=== PATIENT | male | born 1940 | race Caucasian/White ===

== ENCOUNTER → 2018-05-29 | Day surgery (SDC) | payer MEDICARE, OTHER ==
[~2018-05-29] VITALS: Ht 180.3 cm; Wt 90.7 kg
[~2018-05-29] MED LIST: ACYCLOVIR800 MG PO; ADLT ASA LOW81 MG PO; FENOFIBRATE134 MG PO; FIBERCON625 MG PO; FISH OIL1000 MG PO; FLOMAX0.4 M1 PO; LUMIGAN0.01 % OD; METFORMIN500 MG PO; METOPROL TAR25 MG PO; MONOPRIL10 M1 PO; NEURONTIN300 MG PO; SIMVASTATIN20 MG PO; VITAMIN B-122000 MCG PO; VITAMIN C1000 MG PO; VITAMIN D32000 UNIT PO
[2018-05-29 08:06] VITALS: BP 112/68
== END ==
LOC: ENDO 06:04
PROVIDERS: ATTEND Surgery
PROC: 0DJD8ZZ Inspection of Lower Intestinal Tract, Via Natural or Artificial Opening Endoscopic (ICD-10-PCS; principal; 2018-05-29)
DX: Z12.11 Encounter for screening for malignant neoplasm of colon (principal); K57.30 Diverticulosis of large intestine without perforation or abscess without bleeding

== ENCOUNTER 2020-09-03 17:54 | Inpatient (IN) | payer MEDICARE, OTHER ==
[~2020-09-03] VITALS: Ht 180.3 cm; Wt 86.7 kg
[~2020-09-03 17:54] MED LIST changes: +L-THYROXINE SODIUM XX
--- NOTE | 2020-09-03 17:55 | NUR ---
PT TO ROOM # 16 VIA EMS STRETCHER. PER PT REPORTS BEING TESTED ON Sunday08/31/20 FOR COVID HE WAS PLANNING TO LEAVE TOWN THIS WEEK, CALLED ON SUNDAY WITH RESULTS AND WAS POSITIVE COVID. SINCE SUNDAY REPORTS GENERALIZED WEAKNESS, WITH VIDEO NEWS EDITOR COUGH, LOSS OF TASTE AND SMELL. PT IS AOX 3.
--- NOTE | 2020-09-03 18:10 | NUR ---
BLOOD OBTAINED FROM IV ACCESS BY EMS. PT TOLERATED WELL.
--- NOTE | 2020-09-03 18:28 | NUR ---
SWABS COLLECTED PER ORDER. PT TOLERATED WELL. URINAL GIVEN TO PT FOR UA SAMPLE. VERBALIZED UNDERSTANDIGN. OUTBOUND SALES ADVISOR IN PLACE. CALL LIGHT WITHIN REACH.
--- NOTE | 2020-09-03 18:28 | NUR ---
PATIENT TO ROOM VIA EMS AND PHYSICIAN NOTIFIED OF PATIENT STATUS
--- NOTE | 2020-09-03 18:30 | NUR ---
PT UNABLE TO RECALL HOME MEDICATIONS AT THIS TIME.
[2020-09-03 18:37] LABS: HEMATOCRIT 46.5 % (39.0-50.0); HEMOGLOBIN 15.2 g/dl (14.0-18.0); IMMATURE GRANULOCYTES 0.3 % (0.0-5.0); MEAN CELL VOLUME 94.5 fL CALC (80.0-100.0); MEAN CORPUSCULAR HGB 30.9 pG CALC (26.0-32.0); MEAN CORPUSCULAR HGB CONC 32.7 g/dL CAL (32.0-36.0); NEUT# 5.52 thou/uL (1.82-7.42); RED BLOOD COUNT 4.92 mill/uL (4.70-6.10); RED CELL DISTRI WIDTH 13.9 % (11.5-15.5)
[2020-09-03 18:51] LABS: D-DIMER 0.78 mg/L (0.19-0.60)
[2020-09-03 18:56] LABS: ALBUMIN 3.6 g/dL (3.2-5.0); ALKALINE PHOSPHATASE 54 u/l (38-126); ANION GAP 11 (6-22 (CALC)); BUN 20 mg/dL (8-23); BUN/CREATININE RATIO 18 (12-20 (CALC)); CARBON DIOXIDE 28 mmol/l (22-30); CHLORIDE 99 mmol/l (95-108); CREATININE 1.1 mg/dL (0.7-1.3); GFR > 60 ML/MIN (>=60 (CALC)); GFR FOR AFR.AMER. > 60 ML/MIN (>=60 (CALC)); LIPASE 36 u/l (23-300); SGOT/AST 17 u/l (19-48); SODIUM 135 mmol/l (137-146); TOTAL PROTEIN 6.6 g/dL (6.3-8.2)
--- NOTE | 2020-09-03 19:00 | NUR ---
REPORT GIVEN TO AMIE MC
[2020-09-03 19:08] LABS: BILIRUBIN, TOTAL 1.4 mg/dL (0.0-1.4); C-REACTIVE PROTEIN 17.3 mg/dL (0-0.9)
[2020-09-03 19:09] LABS: ACT PARTIAL THROMBO TIME 26.9 SECONDS (20.0-32.5); INTERNATIONAL NORMALIZED RATIO 1.1 RATIO (0.7-1.3); PROTHROMBIN TIME 11.1 SECONDS (9.0-12.5)
[2020-09-03 19:20] LABS: URINE BILIRUBIN - DIPSTICK NEGATIVE (NEGATIVE); URINE BLOOD DIPSTICK LARGE (NEGATIVE); URINE GLUCOSE - DIPSTICK NEGATIVE (NEGATIVE); URINE KETONE NEGATIVE (NEGATIVE); URINE LEUK ESTERASE NEGATIVE (NEGATIVE); URINE NITRITE - DIPSTICK NEGATIVE (Negative); URINE PH 5.5 (4.5-8.0); URINE PROTEIN - DIPSTICK TRACE mg/dL (NEG-TRACE); URINE SPECIFIC GRAVITY 1.025; URINE UROBILINOGEN - DIPSTICK 0.2 E.U./dL (0.2)
--- NOTE | 2020-09-03 19:20 | NUR ---
PLAN OF CARE UPDATED WITH PT. RESPS EVEN,UNLABBORED. MILD TACHYPNEA NOTED WHEN PT ATTEMPTS TO TALK.
[2020-09-03 19:21] LABS: URINE COLOR DK. YELLOW
--- NOTE | 2020-09-03 20:19 | NUR ---
PT'S RESPS EVEN,UNLBBORED. PT CONTINUES TO COMPLAIN OF BODYACHES AND FATIGUE
--- NOTE | 2020-09-03 21:29 | NUR ---
PT'S SON VU ([phone]) SPOKEN WITH ABOUT THE PATIENTS STATUS AND PLAN OF CARE. PT PERMISSION GIVEN PRIOR
--- NOTE | 2020-09-03 23:42 | NUR ---
PT MADE COMFORTABLE WITH BLANKETS AND REMOVAL OF SHOES. LIGHTS TURNED OUT AND PT ABLE TO REST. RESPS EVEN,UNLABBORED.
[2020-09-04] VITALS (11 sets, daily range): BP systolic 92–128; BP diastolic 52–77
--- NOTE | 2020-09-04 00:55 | NUR ---
PT SLEEPING. RESPS EVEN, UNLABBORED.
--- NOTE | 2020-09-04 01:24 | NUR ---
PT SLEEPING. RESPS EVEN, UNALBBORED.
--- NOTE | 2020-09-04 03:01 | NUR ---
PT ARIVED TO ROOM 291 IN WHEELCHAIR. REPORT WAS GIVEN BY ER NURSE. NO RESPIRATORY DISTRESS NOTED. NON PRODUCTIVE COUGH NOTED. WILL CONTINUE TO OBSERVE.
--- NOTE | 2020-09-04 03:05 | NUR ---
PT LEAVING VIA WHEELCHAIR FROM ER. RESPS EVEN,UNLABBORED.
--- NOTE | 2020-09-04 04:45 | NUR ---
dr. Sampson was called regarding tempt 102.0 and elevated hr at 103bpm. Md gave orders for Telemetry and tylenol for elevated tempt. pt states he is very nauseaous and vomited yellowish colord liquid. Mew order for Zofran. Normal Saline to start at 50ml/hr per Dr. Sampson. orders noted. will continue to observe
--- NOTE | 2020-09-04 06:03 | NUR ---
Md was called regarding pt hr sustaining in 130's. Awaiting response. pt in bed with eyes open and able to verbalize needs and denies pain or discomfort. rechecked temperature and decreased from 102 temporal to 100.0 temporal. resident has incontinence of urine noted. Oxygen level 96% on 2lnc of oxygen therapy. HOB elevated. Will continue to observe.
--- NOTE | 2020-09-04 07:30 | NUR ---
PATIENT IN BED AT THIS TIME SIDE RAILS UP CALL LIGHT WITHIN REACH. PATIENT TEMP RECHECKED AT THIS TIME AND IN 98.4 PATIENT DENIES ANY PAIN AND IS ON 02 AT 2 ITERS AND SPO2 IS 98%. AT THIS TIME. PATIENT REMAINS IN ISOLATION FOR COVID AT THIS TIME.
[2020-09-04] MEDS ORDERED: SIMVASTATIN20 MG PO (08:39)
[2020-09-04] MEDS ORDERED: GABAPENTIN300 M2 PO (08:39)
[2020-09-04] MEDS ORDERED: LOPRESSOR 550 MG/TAB PO (08:40)
[2020-09-04] MEDS ORDERED: LEVOTHYROXIN50 MCG PO (08:40)
[2020-09-04] MEDS ORDERED: TAMSULOSIN HCL0.4 MG PO (08:40)
--- NOTE | 2020-09-04 12:29 | NUR ---
PATIENT RESTING IN BED AT THIS TIME DENIES ANY NEEDS SIDERAILS UP X 2 O2 ON AT 2 LITERS. DENIES PAIN. TELE BEING MONITORED BY ED AT THIS TIME.
--- NOTE | 2020-09-04 16:15 | NUR ---
PATIENT INCOTINENT OF STOOL AT THIS TIME. PATIENT GIVEN PARTIAL BATH. PATIENT IN BED SIDERAIL UP CALL LIGHT WITHIN REACH. PATIENT STATES HE HAS NO PAIN BUT HAD A DRY NON PRODUCTIVE COUGH AT THIS TIME. PATIENT SIDERAILS ARE UP X 2 CALL LIGHT WITHIN REACH.
--- NOTE | 2020-09-04 18:45 | NUR ---
rec'd to icu 6 per bed from [facility]. report rec'd per soham. denies distress. o2 began @ 2 l/m per nc. quality assurance monitor body shows a fib hr 151. #22 lfa. ns infusing @ 50cchr. fall & air/contact precautions cont.
--- NOTE | 2020-09-04 18:45 | NUR ---
ORDERS OBTAINED AT THIS TIME TO TRANSFER PATIENT TO ICU PER FUEL EFFICIENT AUTOMOBILE DESIGNER FOR NEW ONSET OF A-FIB RVR AT THIS TIME. REPORT GIVEN TO BARB CARRIZALES IN ICU.
--- NOTE | 2020-09-04 18:45 | NUR ---
spoke to pt about covid results & prone position.
--- NOTE | 2020-09-04 19:30 | NUR ---
environmental monitoring specialist shows a fib hr 151. while pushing cardizem 10mg hr lowered to 76 bpm. will hold other 10mg.
--- NOTE | 2020-09-04 20:00 | NUR ---
piece cutter shows a flutter hr 90. denies distress. uing cell phone.
--- NOTE | 2020-09-04 22:00 | NUR ---
eyes closed. nad. radiation monitor shows a flutter hr 96.
[2020-09-05] VITALS (10 sets, daily range): BP systolic 99–138; BP diastolic 52–71
--- NOTE | 2020-09-05 00:01 | NUR ---
eyes closed. no distress. case monitor shows a flutter hr 102. ivf infusing well.
--- NOTE | 2020-09-05 02:00 | NUR ---
resting quietly. resps even & unlabored. nad.
--- NOTE | 2020-09-05 04:00 | NUR ---
eyes closed. nad. patient monitor shows a flutter hr 88.
--- NOTE | 2020-09-05 05:25 | NUR ---
[id number] lab here. blood drawn. campus monitor shows sinus rhythm pvcs hr 90. rt notified of need for ekg.
--- NOTE | 2020-09-05 05:35 | NUR ---
rt here. ekg obtained.
[2020-09-05 06:13] LABS: HEMATOCRIT 47.2 % (39.0-50.0); IMMATURE GRANULOCYTES 0.5 % (0.0-5.0); MEAN CELL VOLUME 95.7 fL CALC (80.0-100.0); MEAN CORPUSCULAR HGB 30.4 pG CALC (26.0-32.0); MEAN CORPUSCULAR HGB CONC 31.8 g/dL CAL (32.0-36.0); NEUT# 7.36 thou/uL (1.82-7.42); RED BLOOD COUNT 4.93 mill/uL (4.70-6.10); RED CELL DISTRI WIDTH 13.9 % (11.5-15.5)
[2020-09-05 06:23] LABS: ALKALINE PHOSPHATASE 51 u/l (38-126); ANION GAP 13 (6-22 (CALC)); BUN 26 mg/dL (8-23); BUN/CREATININE RATIO 26 (12-20 (CALC)); CARBON DIOXIDE 27 mmol/l (22-30); CHLORIDE 105 mmol/l (95-108); GFR > 60 ML/MIN (>=60 (CALC)); GFR FOR AFR.AMER. > 60 ML/MIN (>=60 (CALC)); POTASSIUM 4.8 mmol/l (3.5-5.1); SGOT/AST 22 u/l (19-48); SODIUM 140 mmol/l (137-146); TOTAL PROTEIN 5.4 g/dL (6.3-8.2)
[2020-09-05 06:34] LABS: ALBUMIN 2.8 g/dL (3.2-5.0); BILIRUBIN, TOTAL 0.6 mg/dL (0.0-1.4)
--- NOTE | 2020-09-05 07:20 | NUR ---
PT SITTING IN BED. A&O X3. NO DISTRESS NOTED. PT IN SR CURRENTLY ON MONITOR SUSTAINING 60-80 BPM WITH PVC'S. PT REPORTS TO BE FEELING WELL THIS MORNING. EXPEDITER CLERK COUGH NOTED. PT CURRENTLY ON ROOM AIR SUSTAINING 95-97%. OXYGEN % TO BE MONITORED CLOSELY. ASSISTED PT TO BSC. SMALL BM. ASSESSMENT COMPLETED. DISCUSSED POC. CALL LIGHT IN REACH. CONTINUE TO MONITOR.
--- NOTE | 2020-09-05 08:20 | NUR ---
PRELIM BLOOD CX RESULTS SHOW GRAM POSITIVE COCCI IN 1 BOTTLE, LIKELY A CONTAMINANT. REPORTED TO DR HAOR AND LINDA. PER LINDA, F/U WITH FINAL RESULTS.
--- NOTE | 2020-09-05 12:05 | NUR ---
PT SITTING IN BED EATING IN LUNCH. NO NEEDS AT THIS TIME. HR IN SR 80 WITH PVC'S. CALL LIGHT IN REACH. CONTINUE TO MONITOR.
--- NOTE | 2020-09-05 17:31 | NUR ---
REPORT GIVEN TO DAVID MC
--- NOTE | 2020-09-05 17:50 | NUR ---
REPORT RECEIVED FROM JESUSITA PATTERSON.
--- NOTE | 2020-09-05 18:20 | NUR ---
PT TRANSFERRED TO [place] IN STABLE CONDITION VIA WC.
--- NOTE | 2020-09-05 18:23 | NUR ---
PT ARRIVED TO MED/SURG ROOM 282 IN STABLE CONDITION VIA WHEELCHAIR ACCOMPANIED BY LEONARDORN;PT AMBULATED TO BEDSIDE WITH X1 ASSIST;PT A&O X3, ORIENTED TO ROOM AND CALL LIGHT SYSTEM;WT AND VS OBTAINED AT THIS TIME;PT DENIES ANY CURRENT PAIN OR DISCOMFORTS,PAIN SCALE AND REPORTING EDUCATED;RESPIRATIONS EVEN AND UNLABORED ON RA;TELE MONITORING PLACED ON PT AT THIS TIME;#22G TO LFA INFUSING NS @ 50ML/HR,SITE APPEARS HEALTHY;PT REMAINS IN AIR/CONTACT PRECAUTIONS DUE TO COVID19 DX;FRESH WATER PROVIDED PER REQUEST;PT DENIES ANY ADDITIONAL NEEDS AND IS ENCOURAGED TO CALL FOR ASSISTANCE IF NEEDED;CALL LIGHT IN REACH;WILL CONTINUE TO MONITOR
--- NOTE | 2020-09-05 20:08 | NUR ---
PT MEDICATED ORDERS PROVIDE AND ASSESSMENT COMPLETED AT THIS TIME. NO S/O DISTRESS NOTED. POC DISCUSSED AND MED SCHEDULE DISCUSSED AT THIS TIME. PT VERBALIZED UNDERSTANDING OF V/S AND LAB SCHEDULE. INSTRUCTED PT TO CALL IF ANY NEEDS OF ASSISTANCE ARISE OR IF HE NEEDS TO AMBULATE, HE VERBALIZED UNDERSTANDING. CALL LIGHT IN HAND. LIGHTS AND TV LEFT ON.
--- NOTE | 2020-09-05 20:35 | NUR ---
PT C/O ANTIBIOTIC THERAPY HURTING AT IV SITE. SITE APPEARS HEALTHY W/OUT S/O INFILTRATION AT THIS TIME. I TURNED AZITHROMYCIN DOWN TO RUN AT HALF RATE FOR COMFORT. WILL MONITOR CLOSELY TO MAKE SURE SITE REMAINS PATENT AND HEALTHY.
--- NOTE | 2020-09-05 20:45 | NUR ---
PT REPORTS IV SITE IS FEELING BETTER NOW THAT ANTIBIOTIC THERAPY HAS BEEN TURNED DOWN. NO S/O DISTRESS. I INSTRUCTED HIM TO CALL IF HE HAS ANYMORE DISCOMFORT AT IV SITE OR ANY OTHER NEEDS ARISE. HE VERBALIZED UNDERSTANDING.
--- NOTE | 2020-09-05 23:00 | NUR ---
PT SET OFF BED ALARM AND WAS HEARD YELLING. VISUALIZED ON MONITOR TO BE SAFELY IN BED LAYING ON SIDE. WE ENTERED THE ROOM, BED ALARM WAS SOUNDING, BUT PT WAS SAFELY IN THE BED LAYING AND HAD JUST TURNED OVER TO LAY ON HIS SIDE FOR COMFORT. PROVIDED PO FLUIDS AT THIS TIME AND ADJUSTED LIGHTS AGAIN FOR COMFORT. PT DENIES ANY OTHER NEEDS AT THIS TIME. CALL LIGHT IS AT SIDE AND BED ALARM PLACED BACK ON.
--- NOTE | 2020-09-05 23:12 | NUR ---
PT APPEARS SLEEPING WITH LIGHTS AND TV OFF. CALL LIGHT AT SIDE.
--- NOTE | 2020-09-05 23:30 | NUR ---
PT CALLED TO ASK ABOUT HIS IV "NEEDING SWITCHED." I OBSERVED IVF RUNNING 50MLS/HR TO SITE THAT APPEARS HEALTHY. I EXPLAINED TO HIM THAT IT IS RUNNING ORDERS PROVIDE. HE DENIES PAIN AT SITE. V/S ASSESSED AT THIS TIME. NO S/O DISTRESS. PT DENIES ANY FURTHER NEEDS AT THIS TIME. CALL LIGHT AT SIDE.
[2020-09-06 04:00] VITALS: BP 107/80
--- NOTE | 2020-09-06 05:26 | NUR ---
LAB IS IN WITH PT AT THIS TIME. NO S/O DISTRESS NOTED. CALL LIGHT AT BEDSIDE.
--- NOTE | 2020-09-06 05:46 | NUR ---
PT MEDICATED ORDERS PROVIDE. PT REQUESTING AGAIN THAT HIS FOOD BE WARMED PRIOR TO RECEIVING IT THROUGHOUT THE DAY TODAY. I EXPLAINED TO HIM THAT I WOULD LEAVE THAT SPECIAL ORDER WITH DAY SHIFT AND DO THE BEST I COULD FOR THAT. PT WAS OFFERED COFFEE AT THIS TIME/PROVIDED.
[2020-09-06 06:15] LABS: HEMATOCRIT 42.8 % (39.0-50.0); HEMOGLOBIN 13.8 g/dl (14.0-18.0); IMMATURE GRANULOCYTES 0.5 % (0.0-5.0); MEAN CELL VOLUME 95.1 fL CALC (80.0-100.0); MEAN CORPUSCULAR HGB 30.7 pG CALC (26.0-32.0); MEAN CORPUSCULAR HGB CONC 32.2 g/dL CAL (32.0-36.0); NEUT# 10.17 thou/uL (1.82-7.42); RED BLOOD COUNT 4.5 mill/uL (4.70-6.10); RED CELL DISTRI WIDTH 13.9 % (11.5-15.5)
[2020-09-06 06:32] LABS: ALBUMIN 2.6 g/dL (3.2-5.0); ALKALINE PHOSPHATASE 45 u/l (38-126); ANION GAP 12 (6-22 (CALC)); BILIRUBIN, TOTAL 0.4 mg/dL (0.0-1.4); BUN 33 mg/dL (8-23); BUN/CREATININE RATIO 35 (12-20 (CALC)); CARBON DIOXIDE 23 mmol/l (22-30); CHLORIDE 108 mmol/l (95-108); CREATININE 0.9 mg/dL (0.7-1.3); GFR > 60 ML/MIN (>=60 (CALC)); GFR FOR AFR.AMER. > 60 ML/MIN (>=60 (CALC)); POTASSIUM 4.5 mmol/l (3.5-5.1); SGOT/AST 26 u/l (19-48); SODIUM 139 mmol/l (137-146); TOTAL PROTEIN 5.1 g/dL (6.3-8.2)
--- NOTE | 2020-09-06 07:15 | NUR ---
REPORT RECEIVED FROM JESUSITA JOHNSON.
--- NOTE | 2020-09-06 08:25 | NUR ---
PT RESTING IN SEMI FOWLERS POSITION,A&O X3;VS OBTAINED AND ASSESSMENT COMPLETED;PT DENIES ANY CURRENT PAIN OR DISCOMFORTS, PAIN SCALE AND REPORTING EDUCATED;RESPIRATIONS EVEN AND UNLABORED ON RA,CLEAR/DIMINISHED LUNG SOUNDS NOTED;ABDOMEN SOFT ON PALPATION AND ACTIVE IN ALL 4 QUADRANTS;STRONG PEDAL PULSES;SKIN INTACT;TELE MONITORING IN PLACE;#22G TO LFA INFUSING NS @ 50ML/HR,SITE APPEARS HEALTHY;PT DENIES ANY ADDITIONAL NEEDS AT THIS TIME AND IS ENCOURAGED TO CALL FOR ASSISTANCE IF NEEDED;FALL PRECAUTIONS IN PLACE WITH BED IN THE LOWEST POSITION AND CALL LIGHT IN REACH;WILL CONTINUE TO MONITOR
[2020-09-06 08:26] VITALS: BP 150/77
[2020-09-06 11:05] VITALS: BP 117/50
--- NOTE | 2020-09-06 11:45 | NUR ---
PT RESTING IN SEMI FOWLERS POSITION WATCHING TV;RESPIRATIONS EVEN AND UNLABORED ON RA;PT DENIES ANY CURRENT PAIN OR DISCOMFORTS;TELE MONITORING IN PLACE;IV SITE PATENT INFUSING NS WITH EASE PER ORDER;PT DENIES ANY ADDITIONAL NEEDS;ENCOURAGED TO CALL FOR ASSISTANCE IF NEEDED;FALL PRECAUTIONS IN PLACE WITH CALL LIGHT IN REACH;WILL CONTINUE TO MONITOR
[2020-09-06 15:10] VITALS: BP 122/58
--- NOTE | 2020-09-06 17:10 | NUR ---
PT RESTING IN SEMI FOWLERS POSITION;RESPIRATIONS EVEN AND UNLABORED ON RA;PT DENIES ANY CURRENT PAIN OR NEEDS;TELE MONITORING IN PLACE;IV FLUIDS INFUSING WITH EASE PER ORDER;ENCOURAGED TO CALL FOR ASSISTANCE IF NEEDED;CALL LIGHT IN REACH;WILL CONTINUE TO MONITOR
--- NOTE | 2020-09-06 19:01 | NUR ---
REPORT FROM MONTANA CARRIZALES. ASSUMED PT CARE.
[2020-09-06 19:30] VITALS: BP 119/77
--- NOTE | 2020-09-06 20:12 | NUR ---
PT NOTED SITTING UP IN BED. ALERT AND ORIENTED X3. NO APPARENT DISTRESS NOTED. RESPIRATIONS EVEN AND UNLABORED, ON RA. IV SITE APPEARS HEALTHY WITH IV ABT INFUSING. PT DENIES ANY PAIN OR SOB. DISCUSSED POC. PT VERBALIZED UNDERSTANDING. REEL FILM INSPECTOR IN PLACE. NO CURRENT WANTS OR NEEDS. CALL LIGHT WITHIN REACH. WILL CONTINUE TO MONITOR.
[2020-09-07] VITALS: BP 110/49
--- NOTE | 2020-09-07 00:10 | NUR ---
PT RESTING IN BED. NO APPARENT DISTRESS NOTED. REMAINS ON RA, RESPIRATIONS EVEN AND UNLABORED. VSS. PSYCH SPECIALIST IN PLACE. CALL LIGHT WITHIN REACH. WILL CONTINUE TO MONITOR.
--- NOTE | 2020-09-07 03:48 | NUR ---
PT RESTING IN BED. NO APPARENT DISTRESS NOTED. REMAINS ON RA, RESPIRATIONS EVEN AND UNLABORED. ION IMPLANT MACHINE OPERATOR IN PLACE. CALL LIGHT WITHIN REACH. WILL CONTINUE TO MONITOR.
[2020-09-07 04:30] VITALS: BP 124/65
[2020-09-07 05:59] LABS: HEMATOCRIT 42.8 % (39.0-50.0); HEMOGLOBIN 13.6 g/dl (14.0-18.0); MEAN CELL VOLUME 95.7 fL CALC (80.0-100.0); MEAN CORPUSCULAR HGB 30.4 pG CALC (26.0-32.0); MEAN CORPUSCULAR HGB CONC 31.8 g/dL CAL (32.0-36.0); RED BLOOD COUNT 4.47 mill/uL (4.70-6.10)
[2020-09-07 06:27] LABS: ANION GAP 9 (6-22 (CALC)); BUN 30 mg/dL (8-23); BUN/CREATININE RATIO 34 (12-20 (CALC)); CARBON DIOXIDE 26 mmol/l (22-30); CHLORIDE 108 mmol/l (95-108); CREATININE 0.9 mg/dL (0.7-1.3); GFR > 60 ML/MIN (>=60 (CALC)); GFR FOR AFR.AMER. > 60 ML/MIN (>=60 (CALC)); MAGNESIUM 2.1 mg/dL (1.6-2.3); POTASSIUM 4.9 mmol/l (3.5-5.1); SODIUM 138 mmol/l (137-146)
[2020-09-07 07:15] VITALS: BP 128/70
--- NOTE | 2020-09-07 07:15 | NUR ---
PATIENT RESTING IN BED DENIES ANY NEEDS. ALERT AND ORIENTED SPO2 98% ON R/A. BOOKMAKER MAP DONE AT THIS TIME CALL LIGHT WITHIN REACH. SIDERAILS UPX2.
[2020-09-07 11:29] VITALS: BP 132/91
--- NOTE | 2020-09-07 12:10 | NUR ---
PATIETN SITTING IN BED EATING LUNCH AT THIS TIME DENIES ANY NEEDS CURRENTLY.
[2020-09-07] MEDS ORDERED: DEXAMETHASON6 MG PO (12:12)
[2020-09-07] MEDS ORDERED: LEVAQUIN750 M1 PO (12:12)
--- NOTE | 2020-09-07 13:18 | NUR ---
PATIENT D/C AT THIS TIME PATIENT VERBALIZEA D/C INSTRUCTION UNDERSTANDING .
--- NOTE | 2020-09-07 15:05 | NUR ---
Discharge instructions given. Patient verbalizes understanding of same. Discharged in stable condition via 5Wheelchair to Home with spouse. All belongings sent with pt.
--- NOTE | 2020-09-13 13:01 | NUR ---
Pneumonia post discharge follow up call completed today, . Patient states he is doing well. He is still weak, but doing better each day. No fever, chills, or SOB. Pt. obtained and took prescribed medication without difficulty. Pt. has a follow up appt. with his PCP this Sunday, - Pt. epressed gratitude for care he received during his hospitalization. No questions or needs at this time.
== END 2020-09-07 14:58 | disposition home or self-care (01) | DRG 177 ==
LOC: ED 17:54 → ED-I 20:14 → ED 20:23 → ED-I 20:24 → MS2 09-04 01:45 → ICU 09-04 18:45 → MS2 09-05 18:23
PROVIDERS: Nurse Practitioner; ADMIT Internal Medicine; ATTEND Internal Medicine
DX: U07.1 COVID-19 (principal); J12.89 Other viral pneumonia; J96.01 Acute respiratory failure with hypoxia; I48.91 Unspecified atrial fibrillation; I10 Essential (primary) hypertension; E11.40 Type 2 diabetes mellitus with diabetic neuropathy, unspecified; E78.5 Hyperlipidemia, unspecified; E03.9 Hypothyroidism, unspecified; N40.0 Benign prostatic hyperplasia without lower urinary tract symptoms; Z79.899 Other long term (current) drug therapy; Z96.612 Presence of left artificial shoulder joint
CPT/HCPCS: J1650; Q9967

== ENCOUNTER 2023-03-21 14:00 | Emergency (ER) | payer MEDICARE, OTHER ==
[~2023-03-21] VITALS: Ht 180.3 cm; Wt 81.6 kg
[~2023-03-21 14:00] MED LIST changes: +DEXAMETHASON6 MG PO; +GABAPENTIN300 M2 PO; +LEVAQUIN750 M1 PO; +LEVOTHYROXIN50 MCG PO; +LOPRESSOR 550 MG/TAB PO; +TAMSULOSIN HCL0.4 MG PO
[2023-03-21 14:13] VITALS: BP 116/54
[2023-03-21 14:20] VITALS: BP 105/60
[2023-03-21 14:40] VITALS: BP 117/56
[2023-03-21 14:49] VITALS: BP 117/56
== END 2023-03-21 14:57 | disposition home or self-care (01) ==
LOC: ED 14:00
DX: S51.811A Laceration without foreign body of right forearm, initial encounter (principal); S61.412A Laceration without foreign body of left hand, initial encounter; S61.411A Laceration without foreign body of right hand, initial encounter; I10 Essential (primary) hypertension; E11.9 Type 2 diabetes mellitus without complications; E78.5 Hyperlipidemia, unspecified; W01.0XXA Fall on same level from slipping, tripping and stumbling without subsequent striking against object, initial encounter; M47.896 Other spondylosis, lumbar region

== ENCOUNTER 2024-03-11 13:43 | Observation (INO) | payer MEDICARE, OTHER ==
[~2024-03-11] VITALS: Ht 180.3 cm; Wt 75.0 kg
[2024-03-11] VITALS (17 sets, daily range): BP systolic 92–126; BP diastolic 42–65
[~2024-03-11 13:43] MED LIST changes: +ALLERGY RE50 MCG/ACT; +B121000 MC1 PO; +BAYER ASPIRIN E81 MG PO; +D350 MC1 PO; +SIMVASTATIN20 M1 PO; +TYLENOL500 MG PO
[2024-03-11 14:19] LABS: BASO% 0.7 % (0-3); EOS% 3.1 % (0-8); HEMATOCRIT 40.4 % (39.0-50.0); HEMOGLOBIN 12.7 g/dl (14.0-18.0); IMMATURE GRANULOCYTES 0.1 % (0.0-5.0); LYMPH% 14.7 % (15-41); MEAN CELL VOLUME 100.5 fL CALC (80.0-100.0); MEAN CORPUSCULAR HGB 31.6 pG CALC (26.0-32.0); MEAN CORPUSCULAR HGB CONC 31.4 g/dL CAL (32.0-36.0); MONO% 14.4 % (2-13); NEUT# 4.54 thou/uL (1.82-7.42); RED BLOOD COUNT 4.02 mill/uL (4.70-6.10); RED CELL DISTRI WIDTH 13.9 % (11.5-15.5)
[2024-03-11 14:22] LABS: INTERNATIONAL NORMALIZED RATIO 1.1 RATIO (0.7-1.3)
[2024-03-11 14:23] LABS: ALBUMIN 2.9 g/dL (3.2-5.0); ALKALINE PHOSPHATASE 92 u/l (38-126); ANION GAP 5 (6-22 (CALC)); BILIRUBIN, TOTAL 0.3 mg/dL (0.2-1.3); BUN 28 mg/dL (8-23); BUN/CREATININE RATIO 25 (12-20 (CALC)); CARBON DIOXIDE 32 mmol/l (22-30); CHLORIDE 105 mmol/l (95-108); CREATININE 1.1 mg/dL (0.7-1.3); ESTIMATED GFR 67 ML/MIN (>=90 (CALC)); LIPASE 62 u/l (23-300); POTASSIUM 4.2 mmol/l (3.5-5.1); SGOT/AST 27 u/l (19-48); SODIUM 138 mmol/l (137-146); TOTAL PROTEIN 5.5 g/dL (6.3-8.2)
[2024-03-11 14:34] LABS: PROTHROMBIN TIME 10.7 SECONDS (9.0-12.5)
[2024-03-11 14:45] LABS: URINE BILIRUBIN - DIPSTICK Negative (NEGATIVE); URINE BLOOD DIPSTICK Moderate (NEGATIVE); URINE GLUCOSE - DIPSTICK Negative (NEGATIVE); URINE KETONE Trace mg/dL (NEGATIVE); URINE LEUK ESTERASE Negative (NEGATIVE); URINE NITRITE - DIPSTICK Negative (Negative); URINE PROTEIN - DIPSTICK 30 mg/dL (NEG-TRACE); URINE SPECIFIC GRAVITY >=1.030; URINE UROBILINOGEN - DIPSTICK 0.2 E.U./dL (0.2)
[2024-03-11] MEDS ORDERED: SODIUM CHLORIDE 0.9% 1,000 ML IV STA (14:46)
[2024-03-11 14:51] LABS: URINE COLOR Yellow
[2024-03-11] MEDS ORDERED: ASPIRIN 81 MG/TAB PO ONE (17:05)
[2024-03-11] MEDS ORDERED: Zaleplon 5 MG/CAP PO PRN (17:10)
[2024-03-11] MEDS ORDERED: ACETAMINOPHEN 325 MG/TAB PO PRN (17:10)
[2024-03-11] MEDS ORDERED: MAGNESIUM HYDROXIDE 30 ML UDC PO PRN (17:10)
[2024-03-11] MEDS ORDERED: METOPROLOL TARTRATE 50 MG/TAB PO SCH (21:00)
[2024-03-11] MEDS ORDERED: ENOXAPARIN SODIUM 40 MG/0.4 ML SYR SC SCH (21:00)
[2024-03-12 04:38] VITALS: BP 96/46
[2024-03-12] MEDS ORDERED: LEVOTHYROXINE SODIUM 50 MCG/TAB PO SCH (06:00)
[2024-03-12 07:20] VITALS: BP 89/42
[2024-03-12 08:07] LABS: BASO% 0.7 % (0-3); EOS% 3.3 % (0-8); HEMATOCRIT 42.1 % (39.0-50.0); HEMOGLOBIN 13.2 g/dl (14.0-18.0); IMMATURE GRANULOCYTES 0.1 % (0.0-5.0); LYMPH% 10.4 % (15-41); MEAN CELL VOLUME 99.5 fL CALC (80.0-100.0); MEAN CORPUSCULAR HGB 31.2 pG CALC (26.0-32.0); MEAN CORPUSCULAR HGB CONC 31.4 g/dL CAL (32.0-36.0); MONO% 10.8 % (2-13); NEUT# 5.39 thou/uL (1.82-7.42); NEUT% 74.7 % (42-76); RED BLOOD COUNT 4.23 mill/uL (4.70-6.10); RED CELL DISTRI WIDTH 14.1 % (11.5-15.5)
[2024-03-12 08:27] LABS: ALBUMIN 2.7 g/dL (3.2-5.0); POTASSIUM 4.1 mmol/l (3.5-5.1)
[2024-03-12 08:32] LABS: BILIRUBIN, TOTAL 0.5 mg/dL (0.2-1.3)
[2024-03-12 08:40] VITALS: BP 111/50
[2024-03-12 08:45] VITALS: BP 122/57
[2024-03-12 08:51] VITALS: BP 104/72
[2024-03-12] MEDS ORDERED: TAMSULOSIN HCL 0.4 MG CAP PO SCH (09:00)
[2024-03-12] MEDS ORDERED: ASPIRIN EC 81 MG/TAB PO SCH (09:00)
[2024-03-12] MEDS ORDERED: HYDROCO/APAP1 TA9 PO (09:43)
[2024-03-12 10:14] VITALS: BP 111/50
== END 2024-03-12 14:45 ==
LOC: ED 13:43 → ED-I 14:49 → ED 14:49 → ED-I 16:38 → ED 16:56 → MS2 16:57
PROVIDERS: Nurse Practitioner; Nurse Practitioner Family; ADMIT Internal Medicine; ATTEND Internal Medicine
DX: S20.211A Contusion of right front wall of thorax, initial encounter (principal); R53.1 Weakness; E86.0 Dehydration; I12.9 Hypertensive chronic kidney disease with stage 1 through stage 4 chronic kidney disease, or unspecified chronic kidney disease; E11.22 Type 2 diabetes mellitus with diabetic chronic kidney disease; N18.9 Chronic kidney disease, unspecified; E11.40 Type 2 diabetes mellitus with diabetic neuropathy, unspecified; E03.9 Hypothyroidism, unspecified; E78.5 Hyperlipidemia, unspecified; K21.9 Gastro-esophageal reflux disease without esophagitis; W01.0XXA Fall on same level from slipping, tripping and stumbling without subsequent striking against object, initial encounter
CPT/HCPCS: J1650; Q9967

== ENCOUNTER 2024-04-14 14:49 | Observation (INO) | payer MEDICARE, OTHER ==
[2024-04-14] VITALS (13 sets, daily range): BP systolic 108–125; BP diastolic 47–59
[~2024-04-14] VITALS: Ht 180.3 cm; Wt 82.0 kg
[~2024-04-14 14:49] MED LIST changes: +BUMETANIDE1 MG PO; +FLECAINIDE50 MG PO; +HYDROCO/APAP1 TA9 PO; +LOPRESSOR25 M1 PO; +MIDODRINE5 MG PO; +ZYRTEC10 MG PO
--- NOTE | 2024-04-14 14:49 | NUR ---
PATIENT TO ER ROOMM 5 VIA EMS. HE WAS TRANSFERRED BY STAFF AND PERSONEL.
[2024-04-14 15:19] LABS: BASO% 0.8 % (0-3); EOS% 3.6 % (0-8); HEMATOCRIT 43.2 % (39.0-50.0); HEMOGLOBIN 13.7 g/dl (14.0-18.0); IMMATURE GRANULOCYTES 0.1 % (0.0-5.0); LYMPH% 12.2 % (15-41); MEAN CELL VOLUME 99.8 fL CALC (80.0-100.0); MEAN CORPUSCULAR HGB 31.6 pG CALC (26.0-32.0); MEAN CORPUSCULAR HGB CONC 31.7 g/dL CAL (32.0-36.0); NEUT# 5.16 thou/uL (1.82-7.42); NEUT% 71.3 % (42-76); RED BLOOD COUNT 4.33 mill/uL (4.70-6.10); RED CELL DISTRI WIDTH 14.2 % (11.5-15.5)
[2024-04-14 15:35] LABS: ALKALINE PHOSPHATASE 75 u/l (38-126); ANION GAP 7 (6-22 (CALC)); BILIRUBIN, TOTAL 0.5 mg/dL (0.2-1.3); BUN 21 mg/dL (8-23); BUN/CREATININE RATIO 19 (12-20 (CALC)); CARBON DIOXIDE 28 mmol/l (22-30); CHLORIDE 106 mmol/l (95-108); CREATININE 1.1 mg/dL (0.7-1.3); ESTIMATED GFR 67 ML/MIN (>=90 (CALC)); POTASSIUM 4.7 mmol/l (3.5-5.1); SGOT/AST 26 u/l (19-48); SODIUM 137 mmol/l (137-146); TOTAL PROTEIN 5.6 g/dL (6.3-8.2)
--- NOTE | 2024-04-14 16:00 | NUR ---
NO ACUTE DISTRESS NOTED. WILL CONTINUE TO MONITOR.
[2024-04-14 17:12] LABS: URINE BILIRUBIN - DIPSTICK Negative (NEGATIVE); URINE BLOOD DIPSTICK Small (NEGATIVE); URINE GLUCOSE - DIPSTICK Negative (NEGATIVE); URINE KETONE Negative (NEGATIVE); URINE LEUK ESTERASE Negative (NEGATIVE); URINE NITRITE - DIPSTICK Negative (Negative); URINE PH 5.5 (4.5-8.0); URINE PROTEIN - DIPSTICK Negative (NEG-TRACE); URINE SPECIFIC GRAVITY 1.015; URINE UROBILINOGEN - DIPSTICK 0.2 E.U./dL (0.2)
[2024-04-14 17:13] LABS: URINE COLOR Yellow
[2024-04-14 17:20] LABS: URINE RBC 0-2 RBC/hpf (0-5); URINE WBC 0-2 WBC/hpf (0-5)
[2024-04-14] MEDS ORDERED: DOXYCYCLINE HYCLATE 100 MG in SODIUM CHLORIDE 0.9% 100 ML IV ONE (17:40)
--- NOTE | 2024-04-14 19:00 | NUR ---
REPORT GIVEN TO ONCOMING NURSE.
[2024-04-14] MEDS ORDERED: ACETAMINOPHEN 325 MG/TAB PO PRN (20:25)
[2024-04-14] MEDS ORDERED: GUAIFENESIN 200 MG/10 ML UDC PO PRN (20:25)
[2024-04-14] MEDS ORDERED: MAGNESIUM HYDROXIDE 30 ML UDC PO PRN (20:25)
[2024-04-14] MEDS ORDERED: Zaleplon 5 MG/CAP PO PRN (20:25)
[2024-04-14] MEDS ORDERED: AZITHROMYCIN 500 MG/VIAL SDV IV SCH (20:30)
[2024-04-14] MEDS ORDERED: ALBUTEROL SULFATE 2.5 MG VIAL NEB PRN (20:30)
[2024-04-14] MEDS ORDERED: ENOXAPARIN SODIUM 40 MG/0.4 ML SYR SC SCH (21:00)
--- NOTE | 2024-04-14 22:40 | NUR ---
PT CARE REPORT GIVEN TO JOSÉ MC
[2024-04-14] MEDS ORDERED: AZITHROMYCIN 500 MG in SODIUM CHLORIDE 0.9% 250 ML IV SCH (23:00)
[2024-04-15] VITALS (43 sets, daily range): BP systolic 93–132; BP diastolic 47–67
--- NOTE | 2024-04-15 01:15 | NUR ---
COT ASSEMBLER LORIE KENNEDY
--- NOTE | 2024-04-15 01:17 | NUR ---
RECEIVED REPORT FROM NURSE ENCISO, PATIENT TRANSPORTED VIA BED, ARRIVED UNIT AT 2315, PATIENT C/O WEAK, AND TRANSFER 2 PERSON, PATIENT EMS SITE ON RAC G 20 PATENT FLUSHES WELL, UNABLE TO STATE DOSE AND MEDS HE IS TAKING, STATED THE DAUGHTER IN LAW PREPARE HIS MEDS, PATIENT STATED WAS JUST HERE A WEEK AGO, PATIENT ALERT ORIENTED. HOOKED ON MONITOR, SKIN TEAR NOTED ON LEFT ELBOW APPLIED DRESSING, WEEPING NOTED ON LEFT ELBOW, PATIENT WAS WEARING COMPRESION STOCKINGS REQUESTED TO TAKE THEM OFF, PATIENT GLUCOSE AT 2355 WAS ONLY 66, FOODS AND ENSURE GIVEN RECHECKED AT 0046 83, PATIENT GIVEN DRANK HIS ENSURE AGAIN,PATIENT ALSO HAVE SOME REDNESS ON GROIN AREA, CLEANED, PUREWICK IN PLACED, DIMINISHED LUNG SOUNDS, ADMISSION ASSESSMENT COMPLETED, CALL LIGHT IN REACHED.
[2024-04-15 04:42] LABS: BASO% 0.6 % (0-3); EOS% 3.6 % (0-8); HEMATOCRIT 40.5 % (39.0-50.0); HEMOGLOBIN 13.1 g/dl (14.0-18.0); IMMATURE GRANULOCYTES 0.1 % (0.0-5.0); LYMPH% 11.5 % (15-41); MEAN CELL VOLUME 100.2 fL CALC (80.0-100.0); MEAN CORPUSCULAR HGB 32.4 pG CALC (26.0-32.0); MEAN CORPUSCULAR HGB CONC 32.3 g/dL CAL (32.0-36.0); MONO% 12.8 % (2-13); NEUT# 5.62 thou/uL (1.82-7.42); NEUT% 71.4 % (42-76); RED BLOOD COUNT 4.04 mill/uL (4.70-6.10)
[2024-04-15 05:02] LABS: BILIRUBIN, TOTAL 0.3 mg/dL (0.2-1.3); POTASSIUM 4.2 mmol/l (3.5-5.1)
[2024-04-15 05:03] LABS: ALBUMIN 2.2 g/dL (3.2-5.0); TOTAL PROTEIN 4.3 g/dL (6.3-8.2)
--- NOTE | 2024-04-15 05:08 | NUR ---
PATIENT RESTING IN BED, NOT IN DISTRESS, VOIDED 450CC CLEAR YELLOW URINE VIA PUREWICK, COOKIE DENIES PAIN AT THIS TIME, OCCASIONAL COUGH NOTED, CALL LIGHT IN REACHED.
[2024-04-15] MEDS ORDERED: LEVOTHYROXINE SODIUM 50 MCG/TAB PO SCH (06:00)
--- NOTE | 2024-04-15 07:15 | NUR ---
Report received from car shifter nurse. Patient is resting in bed, denies any pain. Patient is A&Ox4, on room air. Male purwick in place, SB on tele monitor. Patient has orders for PT today. All needs addressed, call light within reach.
[2024-04-15] MEDS ORDERED: TAMSULOSIN HCL 0.4 MG CAP PO SCH (09:00)
[2024-04-15] MEDS ORDERED: ASPIRIN EC 81 MG/TAB PO SCH (09:00)
[2024-04-15] MEDS ORDERED: MIDODRINE HCL 5 MG TAB PO SCH (09:00)
[2024-04-15] MEDS ORDERED: FLECAINIDE ACETATE 50 MG TAB PO SCH (09:00)
--- NOTE | 2024-04-15 12:00 | NUR ---
Patient is resting in bed, denies any pain at this time. A&Ox4, on room air, male purwick in place. VS WNL, SB on tele monitor. All needs addressed at this time. Call light within reach. Plan to patient to discharge to [facility] tomorrow.
[2024-04-15] MEDS ORDERED: ALDACTONE25 MG PO (12:03)
[2024-04-15] MEDS ORDERED: LEXAPRO10 MG PO (12:04)
[2024-04-15] MEDS ORDERED: ELIQUIS5 MG PO (12:14)
[2024-04-15] MEDS ORDERED: PROTONIX40 M2 PO (12:16)
--- NOTE | 2024-04-15 16:00 | NUR ---
Patient is resting in bed, denies any pain at this time. A&Ox4, on room air, male purwick in place. VS WNL, SB on tele monitor. Son at bedside, home meds clarified, med rec updated. All needs addressed at this time, call light within reach.
--- NOTE | 2024-04-15 19:15 | NUR ---
ASSESSMENT OF PT COMPLETE. PT VSS. WILL CONTINUE TO MONITOR
--- NOTE | 2024-04-15 23:00 | NUR ---
pt reassessment completed. vss. will continue to monitor.
[2024-04-16 00:01] VITALS: BP 104/58
[2024-04-16 02:01] VITALS: BP 122/52
[2024-04-16 04:00] VITALS: BP 130/59
--- NOTE | 2024-04-16 05:25 | NUR ---
PT REASSESSMENT COMPLETE. VSS. WILL CONTINUE TO MONITOR
[2024-04-16 06:00] VITALS: BP 134/64
--- NOTE | 2024-04-16 07:00 | NUR ---
REPORT RECEIVED FROM BRIANA OFF GOING NURSE. PATIENT NOTED LYING IN BED WITH NO ACUTE DISTRESS NOTED. ASSESSMENT COMPLETED. HE IS A/O X3. VSS. LUNG CLEAR/ DIMINISHED IN THE BASES. BOWEL SOUNDS ACTIVE IN ALL FOUR QUADS. +4 PITTING EDEMA NOTED TO BLE. SKIN INTACT. BED LOCKED, IN LOW POSITION. CALL LIGHT WITHIN REACH.
--- NOTE | 2024-04-16 07:49 | NUR ---
DR. FERNANDEZ AT BEDSIDE WITH PATIENT.
[2024-04-16] MEDS ORDERED: OMNICEF300 MG PO (07:51)
[2024-04-16 08:01] VITALS: BP 140/68
[2024-04-16 10:01] VITALS: BP 118/53
--- NOTE | 2024-04-16 10:15 | NUR ---
PHYSICAL THERAPY HERE TO SEE PATIENT. HE WAS ASSISTED FROM BED TO BEDSIDE COMMODE.
--- NOTE | 2024-04-16 10:30 | NUR ---
PHYSICAL THERAPY ASSISTED PATIENT FROM BEDSIDE COMMODE TO CHAIR. DAUGHTER IN LAW AT BEDSIDE. NO ACUTE DISTRESS NOTED AT THIS TIME.
--- NOTE | 2024-04-16 12:36 | NUR ---
PATIENT UP IN CHAIR WITH NO ACUTE DISTRESS NOTED.
--- NOTE | 2024-04-16 13:03 | NUR ---
PATIENT ASSISTED BACK TO BED.
--- NOTE | 2024-04-16 13:41 | NUR ---
PATIENT DISCHARGED WITH MEDICAL TRANSPORT. REPORT GIVEN TO AYANNA AT [facility].
== END 2024-04-16 13:40 ==
LOC: ED 14:49 → ED-I 19:30 → ED 19:57 → ICU 19:58
PROVIDERS: Family Medicine; Nurse Practitioner Family; ADMIT Internal Medicine; ATTEND Internal Medicine
DX: J18.9 Pneumonia, unspecified organism (principal); R53.1 Weakness; I11.0 Hypertensive heart disease with heart failure; I50.32 Chronic diastolic (congestive) heart failure; E11.9 Type 2 diabetes mellitus without complications; I48.91 Unspecified atrial fibrillation; I95.9 Hypotension, unspecified; F32.A Depression, unspecified; Z91.81 History of falling; Z20.822 Contact with and (suspected) exposure to COVID-19
CPT/HCPCS: J1650

== ENCOUNTER 2024-06-08 19:37 | Emergency (ER) | payer MEDICARE, OTHER ==
[~2024-06-08] VITALS: Ht 180.3 cm; Wt 64.0 kg
[2024-06-08] VITALS (7 sets, daily range): BP systolic 109–130; BP diastolic 54–73
[~2024-06-08 19:37] MED LIST changes: +ALDACTONE25 MG PO; +ELIQUIS5 MG PO; +LEXAPRO10 MG PO; +OMNICEF300 MG PO; +PROTONIX40 M2 PO
[2024-06-08 21:14] LABS: URINE BILIRUBIN - DIPSTICK Negative (NEGATIVE); URINE BLOOD DIPSTICK Moderate (NEGATIVE); URINE GLUCOSE - DIPSTICK Negative (NEGATIVE); URINE KETONE Negative (NEGATIVE); URINE PH 5.5 (4.5-8.0); URINE PROTEIN - DIPSTICK 30 mg/dL (NEG-TRACE); URINE SPECIFIC GRAVITY 1.025; URINE UROBILINOGEN - DIPSTICK 0.2 E.U./dL (0.2)
[2024-06-08 21:15] LABS: URINE COLOR Yellow; URINE LEUK ESTERASE Moderate (NEGATIVE); URINE NITRITE - DIPSTICK Positive (Negative)
[2024-06-08 21:16] LABS: URINE BACTERIA FEW hpf
[2024-06-08] MEDS ORDERED: SULFAMETHOXAZOLE W/TRIMETHOPRI 1 COMBO TAB PO ONE (21:30)
[2024-06-08] MEDS ORDERED: BACTRIM DS1 TAB PO (21:30)
== END 2024-06-08 21:52 | disposition home or self-care (01) ==
LOC: ED 19:37
PROVIDERS: Family Medicine
DX: N39.0 Urinary tract infection, site not specified (principal); R31.9 Hematuria, unspecified; B96.1 Klebsiella pneumoniae [K. pneumoniae] as the cause of diseases classified elsewhere; E11.40 Type 2 diabetes mellitus with diabetic neuropathy, unspecified; I10 Essential (primary) hypertension; I48.91 Unspecified atrial fibrillation; Z96.0 Presence of urogenital implants